=== PATIENT | female | born 1970 | race American Indian/Alaskan Native ===

== ENCOUNTER 2019-12-09 18:22 | Emergency (ER) | payer OTHER ==
--- NOTE | 2019-12-09 19:57 | Emergency Department Report ---
Blank Doc - Documentation Documentation: 49-year-old female that presents with headache, dizziness, and syncopal episode 5 days ago. This initial assessment/diagnostic orders/clinical plan/treatment(s) is/are subject to change based on patient's health status, clinical progression and re- assessment by fellow clinical providers in the ED. Further treatment and workup at subsequent clinical providers discretion. Patient/guardians urged not to elope from the ED as their condition may be serious if not clinically assessed and managed. Initial orders include: 1- Patient sent to [facility] for further evaluation and treatment 2- CT head 3- labs
[2019-12-09 20:35] LABS: Amorphous Crystals,Urine 1+; Bilirubin,Urine NEG (Negative); Blood,Urine LG (Negative); Color,Urine Yellow (Yellow); Mucus,Urine FEW /HPF; Protein,Urine <15 mg/dL mg/dL (Negative); Urobilinogen,Urine < 2.0 mg/dL (<2.0)
[2019-12-09 20:38] LABS: Basophils % (Auto) 0.4 % (0.0-1.8); Eosinophils # (Auto) 0.2 K/mm3 (0.0-0.4); Eosinophils % (Auto) 2.3 % (0.0-4.3); Hematocrit 41.5 % (30.3-42.9); Lymphocytes % (Auto) 34.2 % (13.4-35.0); Mean Corpuscular HGB Conc 34 % (30-34); Mean Corpuscular Volume 92 fl (79-97); Monocytes # (Auto) 0.8 K/mm3 (0.0-0.8); Platelet Count 276 K/mm3 (140-440); Red Blood Count 4.51 M/mm3 (3.65-5.03); Red Cell Distribution Width 12.8 % (13.2-15.2)
[2019-12-09 21:04] LABS: Alanine Aminotransferase 17 units/L (7-56); BUN/Creatinine Ratio 22; Blood Urea Nitrogen 13 mg/dL (7-17); Hemolysis Index 37
[2019-12-09] MEDS ORDERED: METOCLOPRAMIDE 10 MG TAB PO ONE (21:07)
[2019-12-09] MEDS ORDERED: BUTALB/ACETAMINOPHEN/CAFFEINE TAB PO ONE (21:07)
[2019-12-09] MEDS ORDERED: diphenhydrAMINE 25 MG CAP PO ONE (21:07)
--- NOTE | 2019-12-09 21:14 | Emergency Department Report ---
ED Head Trauma HPI - General Chief complaint: Dizziness Stated complaint: DIZZINESS Time Seen by Provider: 12/09/19 19:55 Source: patient, family Mode of arrival: Ambulatory Limitations: Language Barrier - History of Present Illness Initial comments: Patient is a 49-year-old female presents emergency room with complaints of a headache that began 5 days ago. She states that is present in the back of the head. She states that 5 days ago she had a slip and fall while in [employer]. She states that she did have a short syncopal episode when she had her head. She states that she has been continuing to feel dizzy like the room is spinning and continued to have a headache. The patient is ambulating without difficulty. She denies any vision changes, numbness, nausea, vomiting, unilateral weakness, sprain, shortness of breath, palpitations, leg swelling. She states that she was just concerned because her head was hurting and she wanted to be checked out. she denies any past medical history. she denies any allergies medications. Her last menstrual cycle was a month ago. pts daughter used for language interpretation - Related Data Previous Rx's Medication Instructions Recorded Last Taken Type Butalb/Acetaminophen/Caffeine 1 cap PO Q8HR PRN #10 cap 12/09/19 Unknown Rx [Fioricet 50-300-40 mg CAP] cephALEXin [Keflex] 500 mg PO BID 7 Days #14 cap 12/09/19 Unknown Rx Allergies/Adverse reactions: Allergies Allergy/AdvReac Type Severity Reaction Status Date / Time No Known Allergies Allergy Verified 12/09/19 19:57 ED Review of Systems ROS: Stated complaint: DIZZINESS Other details as noted in HPI Comment: All other systems reviewed and negative ED Past Medical Hx - Past Medical History Previous Medical History?: No - Surgical History Past Surgical History?: No - Social History Smoking Status: Never Smoker Substance Use Type: None - Medications Home Medications: Home Medications Medication Instructions Recorded Confirmed Last Taken Type Butalb/Acetaminophen/Caffeine 1 cap PO Q8HR PRN #10 cap 12/09/19 Unknown Rx [Fioricet 50-300-40 mg CAP] cephALEXin [Keflex] 500 mg PO BID 7 Days #14 cap 12/09/19 Unknown Rx ED Physical Exam - General Limitations: No Limitations General appearance: alert, in no apparent distress - Head Head exam: Present: other (small area of edema to the left parietal scalp region, no abrasion, no laceration, no deformity, no crepitus) - Eye Eye exam: Present: normal appearance, PERRL, EOMI. Absent: periorbital swelling, periorbital tenderness - ENT ENT exam: Present: mucous membranes moist - Respiratory Respiratory exam: Present: normal lung sounds bilaterally. Absent: respiratory distress, wheezes, rales, rhonchi, stridor, chest wall tenderness, accessory mu scle use, decreased breath sounds, prolonged expiratory - Cardiovascular Cardiovascular Exam: Present: regular rate, normal rhythm, normal heart sounds. Absent: systolic murmur, diastolic murmur, rubs, gallop - Neurological Exam Neurological exam: Present: alert, oriented X3, CN II-XII intact, normal gait, other (normal finger to nose, normal heel to kelley, no pronator drift, no facial asymmetry, equal pouncer strength, 5/5 strength in the BUE/BLE, sensation intact throughout, no focal neuro deficit). Absent: motor sensory deficit - Psychiatric Psychiatric exam: Present: normal affect, normal mood - Skin Skin exam: Present: warm, dry, intact ED Course Vital Signs 12/09/19 12/09/19 18:40 22:49 Temperature 97.3 F L 97.5 F L Pulse Rate 84 84 Respiratory 16 16 Rate Blood Pressure 122/77 125/76 [Right] O2 Sat by Pulse 97 98 Oximetry - Lab Data Result diagrams: 12/09/19 20:27 12/09/19 20:27 Lab Results 12/09/19 12/09/19 12/09/19 Range/Units 20:22 20:27 20:27 WBC 8.7 (4.5-11.0) K/mm3 RBC 4.51 (3.65-5.03) M/mm3 Hgb 14.0 (10.1-14.3) gm/dl Hct 41.5 (30.3-42.9) % MCV 92 (79-97) fl MCH 31 (28-32) pg MCHC 34 (30-34) % RDW 12.8 L (13.2-15.2) % Plt Count 276 (140-440) K/mm3 Lymph % (Auto) 34.2 (13.4-35.0) % [place] % (Auto) 9.0 H (0.0-7.3) % Eos % (Auto) 2.3 (0.0-4.3) % Baso % (Auto) 0.4 (0.0-1.8) % Lymph # 3.0 (1.2-5.4) K/mm3 [place] # 0.8 (0.0-0.8) K/mm3 Eos # 0.2 (0.0-0.4) K/mm3 Baso # 0.0 (0.0-0.1) K/mm3 Seg Neutrophils % 54.1 (40.0-70.0) % Seg Neutrophils # 4.7 (1.8-7.7) K/mm3 Sodium 140 (137-145) mmol/L Potassium 3.9 (3.6-5.0) mmol/L Chloride 103.4 (98-107) mmol/L Carbon Dioxide 21 L (22-30) mmol/L Anion Gap 20 mmol/L BUN 13 (7-17) mg/dL Creatinine 0.6 L (0.7-1.2) mg/dL Estimated GFR > 60 ml/min BUN/Creatinine Ratio 22 % Glucose 106 H (65-100) mg/dL Calcium 9.0 (8.4-10.2) mg/dL Total Bilirubin 0.20 (0.1-1.2) mg/dL AST 18 (5-40) units/L ALT 17 (7-56) units/L Alkaline Phosphatase 52 (35-129) units/L Troponin T < 0.010 (0.00-0.029) ng/mL Total Protein 7.2 (6.3-8.2) g/dL Albumin 4.0 (3.9-5) g/dL Albumin/Globulin Ratio 1.3 % HCG, Qual (Negative) Urine Color Yellow (Yellow) Urine Turbidity Cloudy (Clear) Urine pH 7.0 (5.0-7.0) Ur Specific [place] 1.017 (1.003-1.030) Urine Protein <15 mg/dl (Negative) mg/dL Urine Glucose (UA) 50 (Negative) mg/dL Urine Ketones Neg (Negative) mg/dL Urine Blood Lg (Negative) Urine Nitrite Neg (Negative) Urine Bilirubin Neg (Negative) Urine Urobilinogen < 2.0 (<2.0) mg/dL Ur Leukocyte Esterase Tr (Negative) Urine WBC (Auto) 8.0 H (0.0-6.0) /HPF Urine RBC (Auto) 24.0 (0.0-6.0) /HPF U Epithel Cells (Auto) 6.0 (0-13.0) /HPF Amorphous Crystals 1+ Urine Mucus Few /HPF 12/09/19 Range/Units 20:27 WBC (4.5-11.0) K/mm3 RBC (3.65-5.03) M/mm3 Hgb (10.1-14.3) gm/dl Hct (30.3-42.9) % MCV (79-97) fl MCH (28-32) pg MCHC (30-34) % RDW (13.2-15.2) % Plt Count (140-440) K/mm3 Lymph % (Auto) (13.4-35.0) % [place] % (Auto) (0.0-7.3) % Eos % (Auto) (0.0-4.3) % Baso % (Auto) (0.0-1.8) % Lymph # (1.2-5.4) K/mm3 [place] # (0.0-0.8) K/mm3 Eos # (0.0-0.4) K/mm3 Baso # (0.0-0.1) K/mm3 Seg Neutrophils % (40.0-70.0) % Seg Neutrophils # (1.8-7.7) K/mm3 Sodium (137-145) mmol/L Potassium (3.6-5.0) mmol/L Chloride (98-107) mmol/L Carbon Dioxide (22-30) mmol/L Anion Gap mmol/L BUN (7-17) mg/dL Creatinine (0.7-1.2) mg/dL Estimated GFR ml/min BUN/Creatinine Ratio % Glucose (65-100) mg/dL Calcium (8.4-10.2) mg/dL Total Bilirubin (0.1-1.2) mg/dL AST (5-40) units/L ALT (7-56) units/L Alkaline Phosphatase (35-129) units/L Troponin T (0.00-0.029) ng/mL Total Protein (6.3-8.2) g/dL Albumin (3.9-5) g/dL Albumin/Globulin Ratio % HCG, Qual Negative (Negative) Urine Color (Yellow) Urine Turbidity (Clear) Urine pH (5.0-7.0) Ur Specific [place] (1.003-1.030) Urine Protein (Negative) mg/dL Urine Glucose (UA) (Negative) mg/dL Urine Ketones (Negative) mg/dL Urine Blood (Negative) Urine Nitrite (Negative) Urine Bilirubin (Negative) Urine Urobilinogen (<2.0) mg/dL Ur Leukocyte Esterase (Negative) Urine WBC (Auto) (0.0-6.0) /HPF Urine RBC (Auto) (0.0-6.0) /HPF U Epithel Cells (Auto) (0-13.0) /HPF Amorphous Crystals Urine Mucus /HPF - EKG Data EKG shows normal: sinus rhythm, axis, intervals, ST-T waves Rate: normal 12/09/19 22:33 low voltage no STEMI - Radiology Data Radiology results: report reviewed NONENHANCED CT SCAN OF THE HEAD: INDICATION / CLINICAL INFORMATION: 49 years Female; Syncope. TECHNIQUE: Routine CT head without contrast. All CT scans at this location are performed using CT dose reduction for ALARA by means of automated exposure control. COMPARISON: None. FINDINGS: BRAIN / INTRACRANIAL CONTENTS: No acute hemorrhage, mass effect, midline shift, hydrocephalus, or acute, large territorial infarct. No chronic infarct or focal atrophy. Normal brain volume and ventricular/sulcal size for age. No significant white matter abnormality. CRANIOCERVICAL JUNCTION: No significant abnormality. ORBITS: No significant abnormality of visualized orbits. SINUSES / MASTOIDS: Mucosal thickening is seen in the posterior inferior left the ethmoid air cell. ADDITIONAL FINDINGS: None. IMPRESSION: No focal parenchymal lesion in the brain. Signer Name: Henry Rhodes MD Signed: 12/09/2019 9:56 PM Workstation Name: [id number] Transcribed By: BS Dictated By: Henry Bailey MD Electronically Authenticated By: Henry Bailey MD Signed Date/Time: 12/09/192155 DD/ 52 TD/TT: - Medical Decision Making Patient is a 49-year-old female presents emergency room with complaints of a headache that began 5 days ago. She states that is present in the back of the head. She states that 5 days ago she had a slip and fall while in [employer]. She states that she did have a short syncopal episode when she had her head. She states that she has been continuing to feel dizzy like the room is spinning and continued to have a headache. The patient is ambulating without difficulty. She denies any vision changes, numbness, nausea, vomiting, unilateral weakness, sprain, shortness of breath, palpitations, leg swelling. She states that she w as just concerned because her head was hurting and she wanted to be checked out. she denies any past medical history. she denies any allergies medications. Her last menstrual cycle was a month ago. vitals are normal. on exam: small area of edema to the left parietal scalp region, no abrasion, no laceration, no deformity, no crepitus, normal finger to nose, normal heel to kelley, no pronator drift, no facial asymmetry, equal pouncer strength, 5/5 strength in the BUE/BLE, sensation intact throughout, no focal neuro deficit. Examination consistent with scalp hematoma. labs are stable. UA shows evidence of UTI. EKG with sinus bradycardia and low voltage otherwise normal. CT head No focal parenc hymal lesion in the brain. Patient given Reglan, Benadryl, Fioricet and her symptoms completely resolved, she was headache free, and she was ready to go home walking around the emergency department waiting for her results to be discharged home. discussed results with patient. Patient given prescription for Fioricet and Keflex. advised pt to please take medication as prescribed. Please increase your fluid intake over the next several days. Please follow-up with a primary care doctor and a neurologist in the next 2-3 days. Return to the emergency room for any new or worsening symptoms. - Differential Diagnosis concussion, SDH, SAH, ICH, skull fracture, migraine, tension WEST, AVM Critical care attestation.: If time is entered above; I have spent that time in minutes in the direct care of this critically ill patient, excluding procedure time. ED Disposition Clinical Impression: Concussion Qualifiers: Encounter type: initial encounter Loss of consciousness presence/duration: with LOC of 30 min or less Qualified Code(s): S06.0X1A - Concussion with loss of consciousness of 30 minutes or less, initial encounter UTI (urinary tract infection) Qualifiers: Urinary tract infection type: acute cystitis Hematuria presence: with hematuria Qualified Code(s): N30.01 - Acute cystitis with hematuria Disposition: TO HOME OR SELFCARE Is pt being admited?: No Does the pt Need Aspirin: No Condition: Stable Instructions: Urinary Tract Infection in Women (ED), Concussion (ED) Additional Instructions: Take medication as prescribed. Please increase your fluid intake over the next several days. Please follow-up with a primary care doctor and a neurologist in the next 2-3 days. Return to the emergency room for any new or worsening symptoms. Prescriptions: Butalb/Acetaminophen/Caffeine [Fioricet 50-300-40 mg CAP] 1 cap PO Q8HR PRN #10 cap PRN Reason: headache cephALEXin [Keflex] 500 mg PO BID 7 Days #14 cap [facility] Time of Disposition: 22:30 Print Language: MALAY
--- NOTE | 2019-12-09 22:01 | Cat Scan Report ---
NONENHANCED CT SCAN OF THE HEAD: INDICATION / CLINICAL INFORMATION: 49 years Female; Syncope. TECHNIQUE: Routine CT head without contrast. All CT scans at this location are performed using CT dos e reduction for ALARA by means of automated exposure control. COMPARISON: None. FINDINGS: BRAIN / INTRACRANIAL CONTENTS: No acute hemorrhage, mass effect, midline shift, hydrocephalus, or ac jenny, large territorial infarct. No chronic infarct or focal atrophy. Normal brain volume and ventricu lar/sulcal size for age. No significant white matter abnormality. CRANIOCERVICAL JUNCTION: No significant abnormality. ORBITS: No significant abnormality of visualized orbits. SINUSES / MASTOIDS: Mucosal thickening is seen in the posterior inferior left the ethmoid air cell. ADDITIONAL FINDINGS: None. IMPRESSION: No focal parenchymal lesion in the brain. Signer Name: Henry Rhodes MD Signed: 12/09/2019 9:56 PM Workstation Name: [id number]
[2019-12-09 22:50] VITALS: BP 125/76
== END 2019-12-09 22:50 | disposition home or self-care (01) ==
LOC: ED 18:22
DX: S06.0X0A Concussion without loss of consciousness, initial encounter (principal); N39.0 Urinary tract infection, site not specified; Z79.899 Other long term (current) drug therapy; W01.0XXA Fall on same level from slipping, tripping and stumbling without subsequent striking against object, initial encounter; Y93.89 Activity, other specified; Y92.89 Other specified places as the place of occurrence of the external cause; Y99.8 Other external cause status
CPT/HCPCS: 36415; 70450; 80053; 81001; 84484; 84703; 85025; 93005; 93010